=== PATIENT | male | born 1965 | race Hispanic/Latino ===

== ENCOUNTER 2019-09-20 10:12 | Inpatient (IN) | payer OTHER ==
[~2019-09-20] VITALS: Ht 165.1 cm; Wt 79.9 kg
[2019-09-20] MEDS ORDERED: AZITHROMYCIN 250MG/NS 100 ML 100 ML IV ONE (11:15)
[2019-09-20] MEDS ORDERED: CEFTRIAXONE SOD 1 GM/NS 50 ML 50 ML IV ONE (11:15)
[2019-09-20] MEDS ORDERED: DEXAMETHASONE SOD PHOS INJ 4 MG/ML VIAL IV ONE (11:15)
[2019-09-20 11:28] LABS: BASOPHILS % 0.3 % (0.0-1.0); EOSINOPHILS % 0.4 % (0.0-6.0); HEMATOCRIT 41.5 % (38.2-49.6); HEMOGLOBIN 14.1 g/dL (14.0-18.0); LYMPHOCYTES # (AUTO) 0.5 (1.0-3.2); MEAN CORPUSCULAR HEMOGLOBIN 31.7 pg (28-32); MEAN CORPUSCULAR VOLUME 93.3 fL (81-99); MONOCYTES # (AUTO) 0.4 (0.2-0.8); MONOCYTES % 5.3 % (4.4-11.3); NEUTROPHILS # (AUTO) 6.2 (2.1-6.9); PLATELET COUNT 322 x10e3/uL (140-360); RED BLOOD COUNT 4.45 x10e6/uL (4.3-5.7); RED CELL DISTRIBUTION WIDTH 11.8 % (11.7-14.4)
[2019-09-20 11:31] LABS: CLARITY,URINE CLEAR (CLEAR); COLOR,URINE YELLOW (YELLOW)
[2019-09-20 11:32] LABS: BILIRUBIN,URINE NEGATIVE (NEGATIVE); KETONES,URINE NEGATIVE (NEGATIVE); LEUKOCYTE ESTERASE ,URINE NEGATIVE (NEGATIVE); NITRITE,URINE NEGATIVE (NEGATIVE); PROTEIN,URINE DIPSTICK TRACE (NEGATIVE); URINE UROBILINOGEN 1 mg/dL (0.2 - 1); WBC,URINE (MAN) 0-5 /HPF (0-5)
[2019-09-20 11:33] LABS: BACTERIA,URINE RARE /HPF; EPITHELIAL CELLS,URINE FEW /LPF; RBC,URINE 0-5 /HPF (0-5)
[2019-09-20 11:41] LABS: INR 1.05; PARTIAL THROMBOPLASTIN TIME 28.9 seconds (23.8-35.5); PROTHROMBIN TIME 14.3 seconds (11.9-14.5)
[2019-09-20] MEDS ORDERED: AZITHROMYCIN 500MG/NS 250 ML 250 ML IV ONE (11:45)
[2019-09-20 11:50] LABS: ALANINE AMINOTRANSFERASE 43 IU/L (0-55); ALBUMIN 2.6 g/dL (3.5-5.0); ALBUMIN/GLOBULIN RATIO 0.5 (0.8-2.0); ALKALINE PHOSPHATASE 106 IU/L (40-150); ANION GAP 14.8 mmol/L (8-16); BLOOD UREA NITROGEN 22 mg/dL (7-26); BUN/CREATININE RATIO 26 (6-25); CALCIUM 9.7 mg/dL (8.4-10.2); CARBON DIOXIDE 26 mmol/L (22-29); CHLORIDE 103 mmol/L (98-107); CREATINE KINASE 14 IU/L (30-200); CREATININE, SERUM 0.84 mg/dL (0.72-1.25); EST GLOMERULAR FILTRATION RATE > 60 ML/MIN (60-); GLUCOSE 134 mg/dL (74-118); POTASSIUM 3.8 mmol/L (3.5-5.1); SODIUM 140 mmol/L (136-145)
--- NOTE | 2019-09-20 11:51 | NUR ---
CONFIRMED PT WITH CALLER, . GIVEN UPDATED.
[2019-09-20 12:00] LABS: B-TYPE NATRIURETIC PEPTIDE2 < 10.0 pg/mL (0-100)
[2019-09-20] MEDS ORDERED: AZITHROMYCIN 500MG/NS 250 ML 250 ML ONE (12:16)
[2019-09-20] MEDS ORDERED: SODIUM CHLORIDE 0.9% 1000ML 1,000 ML IV STA (12:20)
[2019-09-20] MEDS ORDERED: PANTOPRAZOLE 40 MG 10ML VIAL IV STA (12:20)
--- NOTE | 2019-09-20 12:37 | Diagnostic Imaging Report ---
EXAMINATION: CHEST SINGLE (PORTABLE) INDICATION: Shortness breath COMPARISON: None FINDINGS: LINES/TUBES:None LUNGS:The lung volumes are low. Bilateral patchy airspace opacities. PLEURA:No pleural effusion or pneumothorax. MEDIASTINUM:The cardiomediastinal silhouette appears normal in size and shape. BONES/SOFT TISSUES:No acute osseous injury. ABDOMEN:No free air under the diaphragm. IMPRESSION: Low lung volumes with bilateral multifocal patchy airspace opacities consistent with multifocal pneumonia. Signed by: Andry Aj MD on 09/20/2019 12:34 PM
[2019-09-20 12:44] LABS: AMYLASE 71 U/L (25-125); LIPASE 38 U/L (8-78)
[2019-09-20] MEDS ORDERED: SODIUM CHLORIDE 0.9% 50ML 50 ML ONE (13:10)
[2019-09-20] MEDS ORDERED: IOPAMIDOL 370 MG/ML 200 ML INFUS..BTL INJ ONE (13:10)
--- NOTE | 2019-09-20 13:57 | Diagnostic Imaging Report ---
EXAM: CT Abdomen and Pelvis WITH intravenous contrast INDICATION: Abdominal pain COMPARISON: None. TECHNIQUE: Abdomen and pelvis were scanned utilizing a multidetector helical scanner from the lung base to the pubic symphysis after administration of IV contrast. Coronal and sagittal reformations were obtained. Routine protocol was performed. Scan was performed during portal venous phase. IV CONTRAST: 100mL of Isovue 370 ORAL CONTRAST: Water RADIATION DOSE: Total DLP: 871 mGy*cm Dose modulation, iterative reconstruction, and/or weight based adjustment of the mA/kV was utilized to reduce the radiation dose to as low as reasonably achievable. FINDINGS: LOWER THORAX: Multifocal bibasilar consolidative and groundglass opacities. HEPATOBILIARY: No focal liver lesion. No biliary ductal dilation. Cholelithiasis without CT evidence of cholecystitis. SPLEEN: No splenomegaly. PANCREAS: No focal masses or ductal dilatation. ADRENALS: No adrenal nodules. KIDNEYS/URETERS: No hydronephrosis, stones, or solid mass lesions. PELVIC ORGANS/BLADDER: Unremarkable. PERITONEUM / RETROPERITONEUM: No free air or fluid. LYMPH NODES: No lymphadenopathy. VESSELS: Mild scattered atherosclerotic calcifications of the nonaneurysmal abdominal aorta. GI TRACT: No abnormal bowel thickening. No bowel obstruction. Normal appendix. BONES AND SOFT TISSUES: No acute osseous injury. No suspicious lytic or blastic lesions. IMPRESSION: Cholelithiasis without CT evidence of cholecystitis. Bibasilar consolidative and groundglass opacities consistent with known multifocal pneumonia. Signed by: Andry Aj MD on 09/20/2019 1:53 PM
--- NOTE | 2019-09-20 15:46 | Emergency Department Note ---
History of Present Illnes History of Present Illness Chief Complaint: COVID PUI History of Present Illness This is a 53 year old male 12 DAYS S/S COVID. STATES COVID TESTING DONE AND HE AND ARE POSITIVE. DOESN'T KNOW WHERE TESTING DONE. PT AAOX4. MOD- SEVERE DISTRESS. STATES SOB AND EPIGASTRIC PAIN. PT VERY DIAPHORETIC. PALE. AFEBRILE. Historian: Patient Arrival Mode: Car Brush Finisher Required: No Onset (how long ago): day(s) (12 DAYS) Radiation: Reports non-radiation Severity: moderate Onset quality: gradual Timing of current episode: constant Progression: worsening Chronicity: new Context: Denies recent illness Relieving factors: none Exacerbating factors: none Associated symptoms: Reports denies other symptoms Treatments prior to arrival: none Past Medical/Family History Physician Review I have reviewed the patient's past medical and family history. Any updates have been documented here. Past Medical History Recent Fever: No Clinical Suspicion of Infectio: No New/Unexplained Change in Ment: No Past Surgical History: None Social History Smoking Cessation: Never Smoker Counseling Performed: No Alcohol Use: None Any Illegal Drug Use: No Physically hurt or threatened: No Review of Systems Review of Systems Constitutional: Reports as per HPI EENTM: Reports no symptoms Cardiovascular: Reports no symptoms Respiratory: Reports as per HPI Gastrointestinal: Reports no symptoms Genitourinary: Reports no symptoms Musculoskeletal: Reports no symptoms Integumentary: Reports no symptoms Neurological: Reports no symptoms Psychological: Reports no symptoms Endocrine: Reports no symptoms Hematological/Lymphatic: Reports no symptoms Physical Exam Related Data Allergies: Coded Allergies: No Known Allergies (Unverified , 09/20/19) Triage Vital Signs Vital Signs Date Time Temp Pulse Resp B/P (MAP) Pulse Ox O2 Delivery O2 Flow Rate FiO2 09/20/19 10:12 98.3 93 44 158/93 84 Room Air Vital signs reviewed: Yes Physical Exam CONSTITUTIONAL Constitutional: Present diaphoretic, Present distressed HENT HENT: Present normocephalic, Present atraumatic, Present oropharynx clear/moist, Present nose normal HENT L/R: Present left ext ear normal, Present right ext ear normal EYES Eyes: Reports PERRL, Reports conjunctivae normal NECK Neck: Present ROM normal PULMONARY Pulmonary: Present respiratory distress, Present other (DECR BS'S BIBASILAR) CARDIOVASCULAR Cardiovascular: Present regular rhythm, Present heart sounds normal, Present capillary refill normal, Present normal rate GASTROINTESTINAL Abdominal: Present soft, Present nontender, Present bowel sounds normal GENITOURINARY Genitourinary: Present exam deferred SKIN Skin: Present warm, Present dry MUSCULOSKELETAL Musculoskeletal: Present ROM normal NEUROLOGICAL Neurological: Present alert, Present oriented x 3, Present no gross motor or sensory deficits PSYCHOLOGICAL Psychological: Present mood/affect normal, Present judgement normal Results Laboratory Result Diagram: 09/20/19 1037 09/20/19 1037 Laboratory Laboratory Tests Test 09/20/19 10:37 White Blood Count 7.17 x10e3/uL (4.8-10.8) Red Blood Count 4.45 x10e6/uL (4.3-5.7) Hemoglobin 14.1 g/dL (14.0-18.0) Hematocrit 41.5 % (38.2-49.6) Mean Corpuscular Volume 93.3 fL (81-99) Mean Corpuscular Hemoglobin 31.7 pg (28-32) Mean Corpuscular Hemoglobin Concent 34.0 g/dL (31-35) Red Cell Distribution Width 11.8 % (11.7-14.4) Platelet Count 322 x10e3/uL (140-360) Neutrophils (%) (Auto) 86.0 % (38.7-80.0) Lymphocytes (%) (Auto) 7.0 % (18.0-39.1) Monocytes (%) (Auto) 5.3 % (4.4-11.3) Eosinophils (%) (Auto) 0.4 % (0.0-6.0) Basophils (%) (Auto) 0.3 % (0.0-1.0) Neutrophils # (Auto) 6.2 (2.1-6.9) Lymphocytes # (Auto) 0.5 (1.0-3.2) Monocytes # (Auto) 0.4 (0.2-0.8) Eosinophils # (Auto) 0.0 (0.0-0.4) Basophils # (Auto) 0.0 (0.0-0.1) Absolute Immature Granulocyte (auto 0.07 x10e3/uL (0-0.1) Prothrombin Time 14.3 seconds (11.9-14.5) Prothromb Time International Ratio 1.05 Activated Partial Thromboplast Time 28.9 seconds (23.8-35.5) Urine Color Yellow (YELLOW) Urine Clarity Clear (CLEAR) Urine pH 7 (5 - 7) Urine Specific Cost 1.020 (1.010-1.025) Urine Protein Trace (NEGATIVE) Urine Glucose (UA) Negative (NEGATIVE) Urine Ketones Negative (NEGATIVE) Urine Blood Negative (NEGATIVE) Urine Nitrite Negative (NEGATIVE) Urine Bilirubin Negative (NEGATIVE) Urine Urobilinogen 1 mg/dL (0.2 - 1) Urine Leukocyte Esterase Negative (NEGATIVE) Urine RBC 0-5 /HPF (0-5) Urine WBC 0-5 /HPF (0-5) Urine Epithelial Cells Few /LPF (NONE) Urine Bacteria Rare /HPF (NONE) Sodium Level 140 mmol/L (136-145) Potassium Level 3.8 mmol/L (3.5-5.1) Chloride Level 103 mmol/L (98-107) Carbon Dioxide Level 26 mmol/L (22-29) Anion Gap 14.8 mmol/L (8-16) Blood Urea Nitrogen 22 mg/dL (7-26) Creatinine 0.84 mg/dL (0.72-1.25) Estimat Glomerular Filtration Rate > 60 ML/MIN (60-) BUN/Creatinine Ratio 26 (6-25) Glucose Level 134 mg/dL (74-118) Lactic Acid Level 1.7 mmol/L (0.5-2.0) Calcium Level 9.7 mg/dL (8.4-10.2) Magnesium Level 2.2 MG/DL (1.3-2.1) Total Bilirubin 0.7 mg/dL (0.2-1.2) Aspartate Amino Transf (AST/SGOT) 27 IU/L (5-34) Alanine Aminotransferase (ALT/SGPT) 43 IU/L (0-55) Alkaline Phosphatase 106 IU/L (40-150) Creatine Kinase 14 IU/L (30-200) Creatine Kinase MB 0.20 ng/mL (0-5.0) Troponin I < 0.001 ng/mL (0-0.300) B-Type Natriuretic Peptide < 10.0 pg/mL (0-100) Total Protein 8.2 g/dL (6.5-8.1) Albumin 2.6 g/dL (3.5-5.0) Globulin 5.6 g/dL (2.3-3.5) Albumin/Globulin Ratio 0.5 (0.8-2.0) Amylase Level 71 U/L (25-125) Lipase 38 U/L (8-78) Lab results reviewed: Yes Imaging Imaging results reviewed: Yes Impressions EXAM: CT Abdomen and Pelvis WITH intravenous contrast INDICATION: Abdominal pain COMPARISON: None. TECHNIQUE: Abdomen and pelvis were scanned utilizing a multidetector helical scanner from the lung base to the pubic symphysis after administration of IV contrast. Coronal and sagittal reformations were obtained. Routine protocol was performed. Scan was performed during portal venous phase. IV CONTRAST: 100mL of Isovue 370 ORAL CONTRAST: Water RADIATION DOSE: Total DLP: 871 mGy*cm Dose modulation, iterative reconstruction, and/or weight based adjustment of the mA/kV was utilized to reduce the radiation dose to as low as reasonably achievable. FINDINGS: LOWER THORAX: Multifocal bibasilar consolidative and groundglass opacities. HEPATOBILIARY: No focal liver lesion. No biliary ductal dilation. Cholelithiasis without CT evidence of cholecystitis. SPLEEN: No splenomegaly. PANCREAS: No focal masses or ductal dilatation. ADRENALS: No adrenal nodules. KIDNEYS/URETERS: No hydronephrosis, stones, or solid mass lesions. PELVIC ORGANS/BLADDER: Unremarkable. PERITONEUM / RETROPERITONEUM: No free air or fluid. LYMPH NODES: No lymphadenopathy. VESSELS: Mild scattered atherosclerotic calcifications of the nonaneurysmal abdominal aorta. GI TRACT: No abnormal bowel thickening. No bowel obstruction. Normal appendix. BONES AND SOFT TISSUES: No acute osseous injury. No suspicious lytic or blastic lesions. IMPRESSION: Cholelithiasis without CT evidence of cholecystitis. Bibasilar consolidative and groundglass opacities consistent with known multifocal pneumonia. Signed by: Andry Aj MD on 09/20/2019 1:53 PM EXAMINATION: CHEST SINGLE (PORTABLE) INDICATION: Shortness breath COMPARISON: None FINDINGS: LINES/TUBES:None LUNGS:The lung volumes are low. Bilateral patchy airspace opacities. PLEURA:No pleural effusion or pneumothorax. MEDIASTINUM:The cardiomediastinal silhouette appears normal in size and shape. BONES/SOFT TISSUES:No acute osseous injury. ABDOMEN:No free air under the diaphragm. IMPRESSION: Low lung volumes with bilateral multifocal patchy airspace opacities consistent with multifocal pneumonia. Signed by: Andry Aj MD on 09/20/2019 12:34 PM Procedures 12 Lead ECG Interpretation ECG Interpretation : ECG: ECG 1 Brush Finisher: Interpreted by ED physician Date: Sep 20, 2019 Time: 10:31 Rhythm: sinus rhythm Rate: normal (77) QRS axis: normal ST segments normal: Yes T waves normal: Yes Clinical Impression: normal ECG Assessment & Plan Medical Decision Making MDM LIKELY COVID - CBC, CHEM, UA, CXR, ECG, CX'S - R/O PNEUMONIA/COVID ,STEMI/NSTEMI, CHF, ELECTROLYTE ABNL Reassessment Reassessment NEEDS ADMISSION, NO BEDS AVAILABLE CURRENTLY - REPORT TO DR ELIZABETH TO TRANSFER Assessment & Plan Final Impression: (1) Pneumonia due to COVID-19 virus (2) Hypoxia Depart Disposition: TRANS TO OTHER [facility] Last Vital Signs Date Time Temp Pulse Resp B/P (MAP) Pulse Ox O2 Delivery O2 Flow Rate FiO2 09/20/19 14:33 98.7 82 32 138/85 96 09/20/19 10:12 Room Air Medications in the ED Azithromycin 100 ml @ 0 mls/hr NOW ONCE IV ; Start 09/20/19 at 11:15; Stop 09/20/19 at 11:36; Status DC Ceftriaxone Sodium 50 ml @ 100 mls/hr ONCE ONCE IV Last administered on 09/20/19at 11:39; Admin Dose 100 MLS/HR; Start 09/20/19 at 11:15; Stop 09/20/19 at 11:44; Status DC Dexamethasone Sodium Phosphate 6 mg NOW ONCE IV Last administered on 09/20/19at 11:39; Admin Dose 6 MG; Start 09/20/19 at 11:15; Stop 09/20/19 at 11:16; Status DC Azithromycin 250 ml @ 200 mls/hr NOW ONCE IV Last administered on 09/20/19at 12:16; Admin Dose 200 MLS/HR; Start 09/20/19 at 11:45; Stop 09/20/19 at 12:59; Status DC Azithromycin 250 ml @ ud STK-MED ONCE .ROUTE ; Start 09/20/19 at 12:16; Stop 09/20/19 at 12:10; Status DC Pantoprazole Sodium 40 mg ONCE STAT IV Last administered on 09/20/19at 14:00; Admin Dose 40 MG; Start 09/20/19 at 12:20; Stop 09/20/19 at 12:47; Status DC Sodium Chloride 1,000 ml @ 0 mls/hr Q0M STAT IV Last administered on 09/20/19at 14:00; Admin Dose 1,000 MLS/HR; Start 09/20/19 at 12:20; Stop 09/20/19 at 12:23; Status DC Sodium Chloride 50 ml @ ud STK-MED ONCE .ROUTE ; Start 09/20/19 at 13:10; Stop 09/20/19 at 13:04; Status DC Iopamidol 74,000 mg STK-MED ONCE INJ ; Start 09/20/19 at 13:10; Stop 09/20/19 at 13:04; Status DC MAKI CANELA MD Sep 20, 2019 15:46
[2019-09-20] MEDS ORDERED: HYDROXYCHLOROQ200 MG (18:46)
[2019-09-20] MEDS ORDERED: METHYLPREDNISOLO4 M1 (18:46)
[2019-09-20] MEDS ORDERED: AZITHROMYCIN250 MG (18:46)
[2019-09-21] VITALS (8 sets, daily range): BP systolic 120–143; BP diastolic 81–89
--- NOTE | 2019-09-21 06:15 | NUR ---
RECEIVED THE PATIENT FROM ER IN A STRETCHER.AAOX4.AMBULATORY.NO RESP.DISTRESS.NO PAIN VOICED.ORIENTED TO THE UNIT.BED LOCKED AND IN LOWEST POSITION.PHONE AND CALL LIGHT WITHIN REACH.INSTRUCTED TO CALL FOR ASSISTANCE NEEDED.
--- NOTE | 2019-09-21 07:17 | NUR ---
REPORT GIVEN TO ONCOMING RN.STABLE CONDITION.
--- NOTE | 2019-09-21 09:30 | NUR ---
paged Dr.Hammer Chu to notify of consult
[2019-09-21] MEDS ORDERED: ALBUTEROL SULFATE HFA 8GM INHALATION AEROSOL INH PRN (10:30)
[2019-09-21] MEDS ORDERED: BENZONATATE 100 MG CAP PO PRN (10:30)
[2019-09-21] MEDS ORDERED: ENOXAPARIN 30 MG/0.3 ML SYR SC SCH (10:45)
[2019-09-21] MEDS ORDERED: ENOXAPARIN INJ 80 MG/0.8 ML SYR SC SCH (10:45)
--- NOTE | 2019-09-21 10:50 | NUR ---
paged to notify of consult
[2019-09-21] MEDS ORDERED: SODIUM CHLORIDE 0.9% 250ML 250 ML ONE (11:57)
[2019-09-21] MEDS ORDERED: AZITHROMYCIN 250MG/NS 100 ML 100 ML IV SCH ×2 (12:00→14:00)
[2019-09-21] MEDS: PANTOPRAZOLE 40 MG 10ML VIAL IV SCH (12:20)
[2019-09-21] MEDS: ASCORBIC ACID 500 MG TAB PO SCH ×2 (12:20→17:30)
[2019-09-21] MEDS: DEXAMETHASONE SOD PHOS INJ 4 MG/ML VIAL IV SCH (12:20)
[2019-09-21] MEDS: ZINC SULFATE 220 MG CAP PO SCH (12:21)
[2019-09-21] MEDS: CEFTRIAXONE SOD 1 GM/NS 50 ML 50 ML IV SCH (12:21)
[2019-09-21] MEDS ORDERED: IPRATROPIUM BROMIDE INHALER 12.9 GM INH INH SCH (13:00)
[2019-09-21] MEDS ORDERED: SODIUM CHLORIDE 0.9% 50ML 50 ML ONE (14:24)
[2019-09-21] MEDS ORDERED: IOPAMIDOL 370 MG/ML 200 ML INFUS..BTL INJ ONE (14:25)
[2019-09-21] MEDS: BENZONATATE 100 MG CAP PO SCH ×2 (15:30→20:45)
--- NOTE | 2019-09-21 16:43 | Diagnostic Imaging Report ---
CT of the chest, PE protocol, with contrast. History: Viral pneumonia, concern for PE. Comparison: Chest radiograph from 09/20/2019, CT abdomen/pelvis from 09/20/2019. Technique: Multidetector thin collimation CT scanning of the chest was performed from the level of the apices to the upper abdomen during the pulmonary arterial phase, after intravenous administration of contrast. Coronal and sagittal reformations were obtained. RADIATION DOSE: Total DLP: 516.29 mGy*cm Dose modulation, iterative reconstruction, and/or weight based adjustment of the mA/kV was utilized to reduce the radiation dose to as low as reasonably achievable. FINDINGS: There is adequate opacification the pulmonary arteries which distribute normally. The main pulmonary artery is normal in caliber measuring 3.0 cm in maximal diameter. There is no evidence of a filling defect or vessel cut off to suggest pulmonary thromboembolism. The visualized structures within the base of the neck demonstrate no significant abnormalities. The thoracic aorta is normal course and caliber. The heart is not enlarged. There is no abnormal pericardial fluid present. There is no abnormal x-ray, mediastinal, or hilar lymph node enlargement. The trachea and proximal airways are patent. Examination the lungs demonstrate multifocal groundglass and patchy consolidative opacities throughout the lungs bilaterally. There is no evidence for pneumothorax or pleural effusion. Calcified gallstones are noted within the gallbladder without evidence for wall thickening or pericholecystic fluid. The remaining visualized upper abdominal contents demonstrate no significant abnormalities. The osseous structures demonstrate no evidence for acute fracture or destructive process. The extrathoracic soft tissues are unremarkable. IMPRESSION: No evidence for pulmonary thromboembolism. Multifocal groundglass and consolidative opacities identified throughout the lungs bilaterally compatible with a multifocal/viral infectious process. Cholelithiasis without CT evidence for acute cholecystitis. Signed by: Dr. Sudheer Velázquez MD on 09/21/2019 4:39 PM
--- NOTE | 2019-09-21 17:06 | Consultation ---
DATE OF CONSULTATION: Pulmonary Critical Care Consultation CHIEF COMPLAINT: Dyspnea and congestion. HISTORY OF PRESENT ILLNESS: The patient is a 53-year-old man. He reports dyspnea and congestion for about 13 days. He notes some cough. He also notes some epigastric discomfort. His fevers have been minimal. PAST SURGICAL HISTORY: Noncontributory. PAST MEDICAL HISTORY: 1. No prior history of asthma. 2. No prior cardiac history. 3. No prior respiratory problems. ALLERGIES: THERE ARE NO KNOWN DRUG ALLERGIES. SOCIAL HISTORY: The patient is not an active smoker. He is not a drinker. REVIEW OF SYSTEMS: The patient denies headache. He is not complaining of fever. He has no neck pain. He does have some dyspnea. He has some mild congestion. He has no chest pain. He has some epigastric discomfort, but no nausea or vomiting. He has no leg edema. He is not complaining of any rashes. PHYSICAL EXAMINATION: VITAL SIGNS: Blood pressure is 120/80 and saturation is 92% on 6 L. HEENT: Shows no facial swelling or erythema. LYMPHATIC: Shows no submandibular, cervical, or supraclavicular adenopathy. CARDIAC: Reveals regular rate and rhythm with normal S1 and S2. LUNGS: Auscultation of lungs reveals rhonchorous breath sounds bilaterally. There is no wheezing. ABDOMEN: Soft and nontender. There is no rebound or guarding. EXTREMITIES: Shows no leg edema or calf tenderness. There is no cyanosis or clubbing. SKIN: Shows no rashes. NEUROLOGICAL: Shows no focal abnormalities. LABORATORY DATA: White blood cell count is 7.1 and the hemoglobin is 14.1. The platelet count is 322. BUN to creatinine ratio is normal. Other electrolytes are within normal limits. Albumin is 2.6. RADIOGRAPHIC DATA: CT scan of the abdomen and pelvis shows cholelithiasis. Chest x-ray shows low lung volumes with patchy bilateral airspace consolidation. IMPRESSION: 1. Viral pneumonia and COVID-19 infection. 2. Persistent dyspnea. 3. Hypoalbuminemia. PLAN: 1. Continue Lovenox. 2. Albuterol inhaler as needed. 3. Dexamethasone daily. 4. Complete antibiotics for possible bacterial superinfection. 5. Continue oxygen. 6. CT scan with contrast chest to evaluate for pulmonary emboli. 7. Echocardiogram. MD KYLE Rodarte/ROBERTO /[id number]
[2019-09-21] MEDS: ENOXAPARIN SOD INJ 40 MG/0.4 ML SYR SC SCH (17:30)
--- NOTE | 2019-09-21 18:16 | History and Physical ---
PRIMARY CARE PHYSICIAN: Dr. Noe Abdi. CONSULTANTS: 1. Dr. Braden Mariscal. 2. Dr. Lance Buckner. CHIEF COMPLAINT: Worsening COVID-19 pneumonia. HISTORY OF PRESENT ILLNESS: A 53 years male, who has COVID-19 symptoms approximately over a week ago. He was tested. He and his spouse were subsequently positive. The patient was placed on Plaquenil, Medrol Dosepak, and azithromycin. The patient came to the emergency room with increasing jymazcuyug-yf-dyiewe distress. The patient's chest x-ray showed bilateral pneumonia. The patient was placed on oxygen support. The patient is admitted to treat for COVID-19 pneumonia with respiratory insufficiency. The patient was placed on COVID unit. The patient did receive IV Rocephin and azithromycin and also Decadron. The patient is now admitted for further treatment. PAST MEDICAL HISTORY: Recently diagnosed with COVID-19. PAST SURGICAL HISTORY: Noncontributory. SOCIAL HISTORY: The patient does not smoke or use alcohol. No recreational drugs. ALLERGIES: NO KNOWN ALLERGIES. HOME MEDICATIONS: 1. Plaquenil. 2. Azithromycin. 3. Medrol Dosepak. PHYSICAL EXAMINATION: VITAL SIGNS: Temperature is 98, blood pressure 158/93, pulse rate is 93, respirations 40. GENERAL: The patient is awake, but in respiratory distress. HEENT: Normocephalic and atraumatic. Anicteric. NECK: Supple grossly. PULMONARY: Diminished breath sounds bilaterally with coarses. CARDIOVASCULAR: Regular rate and rhythm. ABDOMEN: Soft. EXTREMITIES: No gross cyanosis or edema. NEUROLOGIC: The patient is awake and alert x4. LABORATORY DATA: WBC 7, hemoglobin 14, hematocrit 42, platelets 322. Serologies repeated, coronavirus PCR is still pending. Coagulation is normal. Chemistry, sodium 140, potassium 3.8, chloride 103, bicarb 26, BUN 22, creatinine 0.8, glucose is 134. Lactic acid 1.7. Magnesium is 2.2. IMAGING TESTS: Abdominal and pelvic CT scan shown that the patient had cholelithiasis without cholecystitis. He has basilar consolidative and ground-glass opacity, consistent with known multifocal pneumonia. IMPRESSION: 1. Coronavirus disease 2019 pneumonia, worsening condition. 2. Respiratory insufficiency with acute hypoxia with rapid breathing. 3. Failed outpatient treatment for coronavirus disease 2019 pneumonia. PLAN: Decadron. IV Rocephin and azithromycin. Lovenox protocol. Supportive treatment for COVID-19. Oxygen support. Antitussive. PPI. We will follow up with Dr. Lance Buckner, ID consultation and also Dr. Braden Mariscal, Pulmonary and Critical Care consultation. MD ANDRÉS Harper/MODL /[id number]
--- NOTE | 2019-09-21 19:14 | NUR ---
Report given to oncoming nurse of patient's status. Resting in bed. AAOX4 to time, person,place, situation. Respirations even and unlabored. O2 6L NC. Side rails upx2, call light within reach.
[2019-09-22] VITALS (8 sets, daily range): BP systolic 123–144; BP diastolic 61–94
[2019-09-22 05:20] LABS: BASOPHILS % 0.3 % (0.0-1.0); EOSINOPHILS % 0.4 % (0.0-6.0); HEMATOCRIT 38.3 % (38.2-49.6); HEMOGLOBIN 13.3 g/dL (14.0-18.0); LYMPHOCYTES % 13.8 % (18.0-39.1); MEAN CORPUSCULAR HEMOGLOBIN 32.9 pg (28-32); MEAN CORPUSCULAR HGB CONC 34.7 g/dL (31-35); MEAN CORPUSCULAR VOLUME 94.8 fL (81-99); MONOCYTES # (AUTO) 0.5 (0.2-0.8); MONOCYTES % 7.4 % (4.4-11.3); NEUTROPHILS # (AUTO) 5.5 (2.1-6.9); NEUTROPHILS % 75.9 % (38.7-80.0); PLATELET COUNT 342 x10e3/uL (140-360); RED BLOOD COUNT 4.04 x10e6/uL (4.3-5.7); RED CELL DISTRIBUTION WIDTH 11.7 % (11.7-14.4)
[2019-09-22 05:47] LABS: ALANINE AMINOTRANSFERASE 51 IU/L (0-55); ALBUMIN 2.5 g/dL (3.5-5.0); ALBUMIN/GLOBULIN RATIO 0.5 (0.8-2.0); ALKALINE PHOSPHATASE 84 IU/L (40-150); ANION GAP 11.4 mmol/L (8-16); BLOOD UREA NITROGEN 30 mg/dL (7-26); BUN/CREATININE RATIO 39 (6-25); CALCIUM 8.6 mg/dL (8.4-10.2); CARBON DIOXIDE 23 mmol/L (22-29); CHLORIDE 108 mmol/L (98-107); CREATININE, SERUM 0.76 mg/dL (0.72-1.25); EST GLOMERULAR FILTRATION RATE > 60 ML/MIN (60-); GLUCOSE 97 mg/dL (74-118); POTASSIUM 4.4 mmol/L (3.5-5.1); SODIUM 138 mmol/L (136-145)
--- NOTE | 2019-09-22 08:00 | NUR ---
Patient resting in bed and SPO2 88% on 6L NC. Once O2 increased to 7L SPO2 91%
[2019-09-22] MEDS: ENOXAPARIN SOD INJ 40 MG/0.4 ML SYR SC SCH ×2 (08:05→16:03)
[2019-09-22] MEDS: PANTOPRAZOLE 40 MG 10ML VIAL IV SCH (08:05)
[2019-09-22] MEDS: ASCORBIC ACID 500 MG TAB PO SCH ×2 (08:05→16:03)
[2019-09-22] MEDS: BENZONATATE 100 MG CAP PO SCH ×3 (08:05→21:00)
[2019-09-22] MEDS: ZINC SULFATE 220 MG CAP PO SCH (08:05)
--- NOTE | 2019-09-22 09:30 | NUR ---
Paged to remind of consult
[2019-09-22] MEDS ORDERED: BISACODYL 5 MG TAB EC PO PRN (10:00)
[2019-09-22] MEDS ORDERED: MAGNESIUM HYDROXIDE 30 ML UDC PO PRN (10:00)
[2019-09-22] MEDS: DEXAMETHASONE SOD PHOS INJ 4 MG/ML VIAL IV SCH (10:12)
[2019-09-22] MEDS: SENNOSIDES 8.6 MG TAB PO SCH ×2 (11:00→16:03)
[2019-09-22] MEDS: CEFTRIAXONE SOD 1 GM/NS 50 ML 50 ML IV SCH (11:00)
--- NOTE | 2019-09-22 12:26 | Consultation ---
DATE OF CONSULTATION: 09/22/2019 Infectious Disease Consult REASON FOR CONSULTATION: COVID pneumonia. Thank you, Dr. Valentin, for asking me to see this patient. HISTORY OF PRESENT ILLNESS: The patient is a 53-year-old man, who presented to the emergency department with severe respiratory distress and low oxygen saturation. The patient has diffuse epigastric pain with cough for several days. He and the tested positive to COVID-19 virus about 12 days prior to arrival. He was being treated with hydroxychloroquine and azithromycin prior to arrival. In the emergency room, chest CT angiogram was negative for pulmonary embolism, but showed bilateral ground- glass opacities. PAST MEDICAL HISTORY: None. PAST SURGICAL HISTORY: None. ALLERGIES: NO KNOWN DRUG ALLERGIES. MEDICATIONS: Please see MAR. Current antibiotics are ceftriaxone 1 g IV piggyback q.24 hours and azithromycin 500 mg IV piggyback q.24 hours. The patient is receiving dexamethasone 6 mg IV piggyback q.24 hours. FAMILY HISTORY: Noncontributory. SOCIAL HISTORY: No alcohol or tobacco use. REVIEW OF SYSTEMS: As per history of present illness. The patient reports marked improvement since admission and management. PHYSICAL EXAMINATION: GENERAL: Mildly dyspneic. VITAL SIGNS: T-max 98.8, pulse rate 72, respiratory rate 24, blood pressure 123/83. Weight 181 pounds. HEENT: Normocephalic and atraumatic. There is no icterus or injection of conjunctiva. There is no ear or nasal discharge. There is moist oral mucosa. No pharyngeal erythema or exudate. LUNGS: Decreased breath sounds bilaterally. Heart: Normal S1 and S2. Regular rate and rhythm. ABDOMEN: Soft and nontender. EXTREMITIES: No edema, clubbing, or cyanosis. SKIN: No acute erythema. COMPUTER NUMERICAL CONTROL GRINDER: Awake, alert, and oriented to person, place, and time. Nonfocal. LABORATORY AND DIAGNOSTICS: WBC 7190, hemoglobin 13.3, platelets 343,000, neutrophils 75.9, lymphocytes 13.8, monocytes 7.4, eosinophils 0.4, and basophils 0.3. BUN 30 and creatinine 0.76. IMPRESSION: 1. Pneumonia due to 2019 novel coronavirus. 2. Respiratory distress. PLAN: Stop ceftriaxone and azithromycin. Continue dexamethasone for a total of 10 days as well as supplemental oxygen as needed to keep pulse ox greater than 94%. MD CARMITA Landers/ROBERTO /[id number]
[2019-09-22] MEDS ORDERED: LACTATED RINGER'S 500 ML INJ ONE (14:30)
--- NOTE | 2019-09-22 15:16 | Progress Note ---
DATE: SUBJECTIVE: The patient is feeling slightly better. He is having less dyspnea. He is not complaining of fevers. He has less cough. PHYSICAL EXAMINATION: VITAL SIGNS: The blood pressure is 144/87, saturation is 93% on 5 L. Pulse is 70. HEENT: No facial swelling or erythema. CARDIAC: Regular rate and rhythm with normal S1, S2. LUNGS: Auscultation of lungs reveals rhonchorous breath sounds bilaterally. There is no wheezing. ABDOMEN: Soft, nontender. There is no rebound or guarding. EXTREMITIES: No leg edema or calf tenderness. There is no cyanosis or clubbing. SKIN: No rashes. IMPRESSION: 1. Viral pneumonia and coronavirus disease-19 infection. 2. Persistent dyspnea. 3. Hypoalbuminemia. PLAN: 1. Complete dexamethasone. 2. Continue Lovenox. 3. Continue oxygen. 4. Await results of echocardiogram. 5. Judicious use of IV fluids. Braden Mariscal MD [facility]/MOD[facility] /[id number]
--- NOTE | 2019-09-22 19:11 | NUR ---
Report given to oncoming nurse of patient's status. Resting in bed. No s/s of acute distress noted. Side rails upx2, call light within reach.
--- NOTE | 2019-09-22 20:14 | NUR ---
Received pt in bed awake, a/o x4, no s/sx of distress noted, denies discomfort. Pt demonstrated use of IS at bedside, educated with verbal understanding. Bed in low and locked position, personal items and call light within reach. Will cont to mon.
[2019-09-23] VITALS (8 sets, daily range): BP systolic 101–121; BP diastolic 61–74
[2019-09-23 05:00] LABS: BASOPHILS % 0.3 % (0.0-1.0); EOSINOPHILS % 0.6 % (0.0-6.0); HEMATOCRIT 38.7 % (38.2-49.6); HEMOGLOBIN 13.1 g/dL (14.0-18.0); LYMPHOCYTES # (AUTO) 1.1 (1.0-3.2); LYMPHOCYTES % 14.8 % (18.0-39.1); MEAN CORPUSCULAR HEMOGLOBIN 30.8 pg (28-32); MEAN CORPUSCULAR HGB CONC 33.9 g/dL (31-35); MEAN CORPUSCULAR VOLUME 91.1 fL (81-99); MONOCYTES # (AUTO) 0.6 (0.2-0.8); MONOCYTES % 8.2 % (4.4-11.3); NEUTROPHILS # (AUTO) 5.1 (2.1-6.9); NEUTROPHILS % 72.2 % (38.7-80.0); PLATELET COUNT 397 x10e3/uL (140-360); RED BLOOD COUNT 4.25 x10e6/uL (4.3-5.7); RED CELL DISTRIBUTION WIDTH 11.3 % (11.7-14.4)
[2019-09-23 05:16] LABS: ALANINE AMINOTRANSFERASE 40 IU/L (0-55); ALBUMIN 2.4 g/dL (3.5-5.0); ALBUMIN/GLOBULIN RATIO 0.5 (0.8-2.0); ALKALINE PHOSPHATASE 73 IU/L (40-150); ANION GAP 12.4 mmol/L (8-16); BLOOD UREA NITROGEN 19 mg/dL (7-26); BUN/CREATININE RATIO 29 (6-25); CALCIUM 8.2 mg/dL (8.4-10.2); CARBON DIOXIDE 21 mmol/L (22-29); CHLORIDE 107 mmol/L (98-107); CREATININE, SERUM 0.65 mg/dL (0.72-1.25); EST GLOMERULAR FILTRATION RATE > 60 ML/MIN (60-); GLUCOSE 98 mg/dL (74-118); POTASSIUM 4.4 mmol/L (3.5-5.1); SODIUM 136 mmol/L (136-145)
--- NOTE | 2019-09-23 06:22 | NUR ---
Pt O2 sat noted at 88% on 6L, O2 increased to 7L pt sat 93%. Resting in bed no distress noted, will report off to oncoming nurse
--- NOTE | 2019-09-23 07:00 | NUR ---
received change of shift report from PM nurse. pt in stable condition.
[2019-09-23] MEDS: SENNOSIDES 8.6 MG TAB PO SCH ×3 (09:00→15:16)
[2019-09-23] MEDS: DEXAMETHASONE SOD PHOS INJ 4 MG/ML VIAL IV SCH (10:25)
[2019-09-23] MEDS: PANTOPRAZOLE 40 MG 10ML VIAL IV SCH (10:27)
[2019-09-23] MEDS: ZINC SULFATE 220 MG CAP PO SCH (10:27)
[2019-09-23] MEDS: BENZONATATE 100 MG CAP PO SCH ×3 (10:27→21:16)
[2019-09-23] MEDS: ENOXAPARIN SOD INJ 40 MG/0.4 ML SYR SC SCH ×2 (10:27→16:33)
[2019-09-23] MEDS: ASCORBIC ACID 500 MG TAB PO SCH ×2 (10:27→16:32)
--- NOTE | 2019-09-23 18:32 | Progress Note ---
DATE: SUBJECTIVE: The patient feels better. He is sitting upright in the chair. His oxygen is decreased to 2 L. PHYSICAL EXAMINATION: VITAL SIGNS: The patient is afebrile. The blood pressure is 101/63 and saturation is 94% on 2 L. HEENT: Shows no facial swelling or erythema. CARDIAC: Reveals regular rate and rhythm with normal S1 and S2. LUNGS: Auscultation of lungs reveals crackles at the bases. There is no wheezing. ABDOMEN: Soft and nontender. There is no rebound or guarding. EXTREMITIES: Shows no leg edema or calf tenderness. There is no cyanosis or clubbing. SKIN: Shows no rashes. NEUROLOGICAL: Shows no focal abnormalities. LABORATORY DATA: CBC is within normal limits. BUN and creatinine are normal. Electrolytes are within normal limits. IMPRESSION: 1. Viral pneumonia and COVID-19 infection. 2. Hypoalbuminemia. PLAN: 1. Complete dexamethasone. 2. Continue Lovenox. 3. Home oxygen evaluation. 4. Probable discharge home tomorrow. The patient will need low dose Eliquis for one month along with completion of his dexamethasone. Braden Mariscal MD [facility] /[id number]
[2019-09-24] VITALS (8 sets, daily range): BP systolic 102–128; BP diastolic 66–93
[2019-09-24] MEDS: SENNOSIDES 8.6 MG TAB PO SCH ×2 (09:00→16:33)
[2019-09-24] MEDS: ENOXAPARIN SOD INJ 40 MG/0.4 ML SYR SC SCH ×2 (09:30→16:33)
[2019-09-24] MEDS: PANTOPRAZOLE 40 MG 10ML VIAL IV SCH (10:33)
[2019-09-24] MEDS: DEXAMETHASONE SOD PHOS INJ 4 MG/ML VIAL IV SCH (10:34)
[2019-09-24] MEDS: BENZONATATE 100 MG CAP PO SCH ×3 (10:36→20:46)
[2019-09-24] MEDS: ASCORBIC ACID 500 MG TAB PO SCH ×2 (10:37→16:33)
[2019-09-24] MEDS: ZINC SULFATE 220 MG CAP PO SCH (10:37)
--- NOTE | 2019-09-24 16:06 | Progress Note ---
DATE: SUBJECTIVE: The patient feels better overall. He has less dyspnea and cough. PHYSICAL EXAMINATION: VITAL SIGNS: He is still on 4 L of oxygen. Saturation is in the low 90s. CARDIAC: Reveals regular rate and rhythm. Normal S1, S2. LUNGS: Auscultation of lungs revealed crackles at the bases. There is no wheezing. ABDOMEN: Soft and nontender. There is no rebound or guarding. EXTREMITIES: Showed no leg edema or calf tenderness. There is no cyanosis or clubbing. SKIN: Shows no rashes. IMPRESSION: Viral pneumonia and COVID-19 infection. PLAN: 1. Complete dexamethasone. 2. Home oxygen evaluation. 3. Continue Lovenox. 4. The patient will need Eliquis at low-dose for one month on discharge along with completion of his dexamethasone. Braden Mariscal MD [facility] /[id number]
--- NOTE | 2019-09-24 19:56 | NUR ---
Resumed care of patient. Patient awake and sitting in recliner, respirations even and unlabored on 4L NC. No s/s of distress at this time. Patient instructed to call for assistance if needed, verbalized understanding. All safety measures in place. Will continue to monitor.
--- NOTE | 2019-09-24 23:52 | NUR ---
O2 weaned down to 3L. Vital signs stable at this time. Will continue to monitor.
[2019-09-25] VITALS (8 sets, daily range): BP systolic 98–116; BP diastolic 59–86
--- NOTE | 2019-09-25 07:46 | NUR ---
PATIENT IN BED RESTING WITH NO S/S OF DISTRESS. O2 IN PLACE VIA N/C. BED IN LOWER POSITION, CALL LIGHT AT REACH.
[2019-09-25] MEDS: PANTOPRAZOLE 40 MG 10ML VIAL IV SCH (09:23)
[2019-09-25] MEDS: ENOXAPARIN SOD INJ 40 MG/0.4 ML SYR SC SCH ×2 (09:23→17:06)
[2019-09-25] MEDS: DEXAMETHASONE SOD PHOS INJ 4 MG/ML VIAL IV SCH (09:23)
[2019-09-25] MEDS: ASCORBIC ACID 500 MG TAB PO SCH ×2 (09:23→17:05)
[2019-09-25] MEDS: SENNOSIDES 8.6 MG TAB PO SCH ×2 (09:23→17:05)
[2019-09-25] MEDS: ZINC SULFATE 220 MG CAP PO SCH (09:23)
[2019-09-25] MEDS: BENZONATATE 100 MG CAP PO SCH ×3 (09:23→21:07)
[2019-09-25 10:37] LABS: BASOPHILS % 0.4 % (0.0-1.0); EOSINOPHILS # (AUTO) 0.1 (0.0-0.4); EOSINOPHILS % 0.6 % (0.0-6.0); HEMATOCRIT 39.8 % (38.2-49.6); HEMOGLOBIN 13.8 g/dL (14.0-18.0); LYMPHOCYTES # (AUTO) 0.9 (1.0-3.2); LYMPHOCYTES % 10.6 % (18.0-39.1); MEAN CORPUSCULAR HEMOGLOBIN 31.6 pg (28-32); MEAN CORPUSCULAR HGB CONC 34.7 g/dL (31-35); MEAN CORPUSCULAR VOLUME 91.1 fL (81-99); MONOCYTES # (AUTO) 0.3 (0.2-0.8); MONOCYTES % 3.9 % (4.4-11.3); NEUTROPHILS # (AUTO) 6.6 (2.1-6.9); NEUTROPHILS % 77.8 % (38.7-80.0); PLATELET COUNT 440 x10e3/uL (140-360); RED BLOOD COUNT 4.37 x10e6/uL (4.3-5.7); RED CELL DISTRIBUTION WIDTH 11.3 % (11.7-14.4)
[2019-09-25 10:54] LABS: ANION GAP 12.4 mmol/L (8-16); BLOOD UREA NITROGEN 22 mg/dL (7-26); BUN/CREATININE RATIO 29 (6-25); CALCIUM 8.6 mg/dL (8.4-10.2); CARBON DIOXIDE 21 mmol/L (22-29); CHLORIDE 106 mmol/L (98-107); CREATININE, SERUM 0.77 mg/dL (0.72-1.25); EST GLOMERULAR FILTRATION RATE > 60 ML/MIN (60-); GLUCOSE 128 mg/dL (74-118); POTASSIUM 4.4 mmol/L (3.5-5.1); SODIUM 135 mmol/L (136-145)
--- NOTE | 2019-09-25 11:12 | Diagnostic Imaging Report ---
EXAMINATION: CHEST SINGLE (PORTABLE) INDICATION: Pneumonia COMPARISON: Chest CT 09/21/2019, chest radiograph 09/20/2019 FINDINGS: LINES/TUBES:None LUNGS:The lung volumes are low. Unchanged bilateral multifocal airspace opacities. PLEURA:No pleural effusion or pneumothorax. MEDIASTINUM:The cardiomediastinal silhouette appears normal in size and shape. BONES/SOFT TISSUES:No acute osseous injury. ABDOMEN:No free air under the diaphragm. IMPRESSION: Unchanged bilateral multifocal airspace opacities consistent with known pneumonia. Signed by: Andry Aj MD on 09/25/2019 11:09 AM
--- NOTE | 2019-09-25 11:38 | NUR ---
MD IN TO SEE PATIENT, NEW ORDERS RECEIVED.
--- NOTE | 2019-09-25 11:49 | Progress Note ---
DATE: SUBJECTIVE: The patient feels better. He is down to 2 L. He is eager to go home. PHYSICAL EXAMINATION: VITAL SIGNS: The blood pressure is 113/74, saturation is 98% on 2 L. HEENT: Shows no facial swelling or erythema. CARDIAC: Reveals regular rate and rhythm with a normal S1 and S2. LUNGS: Auscultation of lungs reveals crackles at the bases. There is no wheezing. ABDOMEN: Soft and nontender. There is no rebound or guarding. EXTREMITIES: Shows no leg edema or calf tenderness. LABORATORY DATA: White blood cell count is 8.4 and hemoglobin is 13.4. The platelet count is 440. BUN to creatinine ratio is normal. Other electrolytes are within normal limits. IMPRESSION: 1. Home oxygen evaluation. 2. Complete dexamethasone as an outpatient. 3. Aspirin or low-dose Eliquis for one month after discharge. MD KYLE Rodarte/ROBERTO /[id number]
--- NOTE | 2019-09-25 14:55 | NUR ---
Late Entry for 09/23/2019 @ 1700H Discussed progress with LYNDSEY Hu and patient. Patient met all goals and will D/C PT services. PT agreed to ambulate in his room 2-3x/day. Addendum: 09/25/19 at 1457 by Chirag Pablo PT Amended: Links added.
--- NOTE | 2019-09-25 15:14 | NUR ---
HOME O2 EVALUATION DONE. PATIENT O2 SAT DROPPED TO 89% WITHOUT OXYGEN. COIL [employer]ER NOTIFIED.
--- NOTE | 2019-09-25 16:32 | NUR ---
HOME 02 EVAL PT DROPPED TO 89% ON ROOM AIR WITH EXERTION DOES NOT QUALIFY FOR HOME 02 CALLED PT'S PHARMACY REGARDING COPAY FOR ELIQUIS COPAY 35.[address] ELIZABETH PLAN DC HOME TOMORROW
--- NOTE | 2019-09-25 19:30 | NUR ---
Resumed care of patient. Patient awake and sitting in recliner, alert and oriented, respirations even and unlabored on room air, no s/s of distress at this time. All safety measures in place. Will continue to monitor.
[2019-09-26] VITALS: BP 110/79
[2019-09-26 04:10] VITALS: BP 101/63
[2019-09-26 08:00] VITALS: BP 116/63
[2019-09-26 08:29] VITALS: BP 116/63
[2019-09-26] MEDS: ENOXAPARIN SOD INJ 40 MG/0.4 ML SYR SC SCH (09:19)
[2019-09-26] MEDS: SENNOSIDES 8.6 MG TAB PO SCH (09:19)
[2019-09-26] MEDS: BENZONATATE 100 MG CAP PO SCH (09:19)
[2019-09-26] MEDS: ASCORBIC ACID 500 MG TAB PO SCH (09:19)
[2019-09-26] MEDS: ZINC SULFATE 220 MG CAP PO SCH (09:19)
[2019-09-26] MEDS: DEXAMETHASONE SOD PHOS INJ 4 MG/ML VIAL IV SCH (09:19)
[2019-09-26] MEDS: PANTOPRAZOLE 40 MG 10ML VIAL IV SCH (09:19)
--- NOTE | 2019-09-26 10:13 | Discharge Summary ---
[facility]: 1. Dr. Lance Buckner. 2. Dr. Braden Mariscal. FINAL DIAGNOSES: 1. Coronavirus disease-19 pneumonia associated with acute hypoxia near respiratory insufficiency. 2. Resolved fever. 3. Superimposed pneumonia. SUMMARY: This is a 53 years male with COVID-19 positive upper respiratory symptoms of increasing shortness of breath, wheezing, and fever. The patient's chest x-ray showed significant pathology. The patient then subsequently had a CT of the chest done. Multifocal ground-glass and consolidative opacity identified throughout the lungs bilaterally compatible with multifocal viral infectious process could be also secondary in post pneumonia. The patient was treated for pneumonia. He did receive anticoagulant therapy along with steroids. He is doing much better. The patient is now at room air 94% even on exertion. No pulmonary embolism noticed. The patient is stable. No swelling. He is fairly well. The patient will be discharging home with the following medication Eliquis 2.5 mg twice a day for 30 days, decadron 6 mg daily for 5 days, azithromycin 250 mg daily for 5 days, Tessalon Perles p.r.n., ProAir HFA two puffs q.6h p.r.n., Pulmicort inhaler 90 mcg two puffs twice a day, ascorbic acid 500 mg twice a day, Pepcid 40 mg twice a day, and zinc sulfate 220 mg daily. The patient is to follow up with primary care physician or myself in approximately two weeks. The patient may follow up with Dr. Braden Mariscal if pulmonary problems persist. The patient is otherwise stable, discharged home today. Follow up as an outpatient for further adjustment of medication. MD ANDRÉS Harper/[facility] /[id number]
--- NOTE | 2019-09-26 10:52 | NUR ---
Patient received discharge order from Dr. Valentin. Patient was discharged home after given discharge instructions on prescriptions given, COVID home tips, and answered all quesitons. Patient IV removed at 1020 and covered with a C/D/I dressing. Patient was on room air and no need to discharge with o2. Patient wheeled to 's car at 1040. Patient had no other issues at this time.
== END 2019-09-26 10:40 | disposition home or self-care (01) | DRG 177 ==
LOC: ER 10:37 → ERHOLD 09-21 02:39 → IMCU 09-21 06:07
PROVIDERS: ADMIT Internal Medicine; ATTEND Internal Medicine
DX: U07.1 COVID-19 (principal); J12.89 Other viral pneumonia; E88.09 Other disorders of plasma-protein metabolism, not elsewhere classified; R09.02 Hypoxemia; K59.00 Constipation, unspecified; R06.89 Other abnormalities of breathing
CPT/HCPCS: 36415; 71045; 71260; 74177; 80048; 80053; 81001; 82150; 82550; 82553; 82948; 83605; 83690; 83735; 83880; 84484; 85025; 85610; 85730; 87040; 93005; 93306; 99285; J0456; J0696; J1100; J1650; J7030; J7050; J7121; Q9967; U0002

== ENCOUNTER 2021-04-30 17:41 | Emergency (ER) | payer OTHER ==
[~2021-04-30] VITALS: Ht 165.1 cm; Wt 79.8 kg
[~2021-04-30 17:41] MED LIST: AZITHROMYCIN250 MG; HYDROXYCHLOROQ200 MG; METHYLPREDNISOLO4 M1
[2021-04-30 18:56] VITALS: BP 176/92
== END 2021-04-30 19:40 | disposition home or self-care (01) ==
LOC: ER 19:39
DX: I10 Essential (primary) hypertension (principal)
CPT/HCPCS: 99282